=== PATIENT | female | born 1995 | race Caucasian/White ===

== ENCOUNTER 2019-06-24 04:58 | Inpatient (IN) ==
[2019-06-24] MEDS ORDERED: STADOL IV PRN (05:00)
[2019-06-24] MEDS ORDERED: PEPCID IV PRN (05:00)
[2019-06-24] MEDS ORDERED: REGLAN PO ONE (05:00)
[2019-06-24] MEDS ORDERED: KEFZOL 1 GM/D5W 1 GM/50 ML IVPB IV PRN (05:00)
[2019-06-24] MEDS ORDERED: PITOCIN 30 UNITS/NS 30 UNIT/500 ML IV.SOLN IV SCH ×2 (05:00→17:30)
[2019-06-24] MEDS ORDERED: PEPCID PO ONE (05:00)
[2019-06-24] MEDS ORDERED: ZOFRAN IV PRN (05:00)
[2019-06-24] MEDS ORDERED: SODIUM CHLORIDE 0.9% INJ SCH (05:00)
[2019-06-24] MEDS ORDERED: PEPCID PO PRN (05:00)
[2019-06-24] MEDS ORDERED: AMPICILLIN 2 GM/NS 2 GM/100 ML IVPB IV ONE (05:00)
[2019-06-24] MEDS: LR 1,000 ML IV SCH ×3 (05:30→16:49)
[2019-06-24 06:22] LABS: BASO# 0.02 X1000 (0.0-0.2); BASO% 0.2 % (0.0-0.8); EOS# 0.16 X1000 (0.0-0.7); EOS% 1.4 % (0.0-10.0); HEMATOCRIT 33.6 % (37.0-47.0); HEMOGLOBIN 11.1 g/dL (12.0-16.0); IMM GRAN# 0.05 X1000 (0.0-0.04); IMM GRAN% 0.4 % (0.0-0.5); LYMPH# 2.31 X1000 (1.2-3.4); LYMPH% 20.2 % (20.5-51.1); MCH 27.5 PG (27-31); MCV 83.4 FL (81-99); MONO# 0.77 X1000 (0.11-0.59); MONO% 6.7 % (1.7-9.3); MPV 10.8 FL (7.4-10.4); NEUT# 8.15 X1000 (1.4-6.5); NEUT% 71.1 % (42.2-75.2); PLT 218 X1000 (130-400); RBC 4.03 XMIL (4.2-5.4); RDW 13.3 % (11.5-14.5); WBC 11.46 X1000 (4.8-10.8)
[2019-06-24 06:26] LABS: URINE SOURCE VOIDED
[2019-06-24 06:28] LABS: BILIRUBIN URINE NEGATIVE (NEGATIVE); BLOOD URINE 2+ (NEGATIVE); CLARITY CLEAR (CLEAR); COLOR YELLOW; GLUCOSE URINE NEGATIVE (NEGATIVE); KETONE URINE TRACE mg/dL (NEGATIVE); LEUKOCYTES URINE 2+ (NEGATIVE); NITRITE URINE NEGATIVE (NEGATIVE); PH URINE 6.5; PROTEIN URINE TRACE mg/dL (NEGATIVE); SP GRAVITY URINE 1.015; UROBILINOGEN URINE NORMAL
[2019-06-24 06:35] LABS: UR AMPHETAMINES QUAL NONE DETECTED (NONE DETECT); UR BARBITUATES QUAL PRESUMPTIVE POSITIVE (NONE DETECT); UR BENZODIAZEPIN QUAL NONE DETECTED (NONE DETECT); UR CANNABINOIDS QUAL NONE DETECTED (NONE DETECT); UR COCAINE QUAL NONE DETECTED (NONE DETECT); UR METHADONE QUAL NONE DETECTED (NONE DETECT); UR METHAMPHETAMINE QUAL NONE DETECTED (NONE DETECT); UR OPIATES QUAL NONE DETECTED (NONE DETECT); UR OXYCODONE QUAL NONE DETECTED (NONE DETECT); UR PCP QUAL NONE DETECTED (NONE DETECT); UR PROPOXYPHENE QUAL NONE DETECTED (NONE DETECT); UR TCA QUAL NONE DETECTED (NONE DETECT)
[2019-06-24 06:40] LABS: AGAP 9; ALBUMIN 3.2 g/dL (3.5-5.0); ALKALINE PHOSPHATASE 118 U/L (32-104); BUN 6 mg/dL (8-22); CALCIUM 8.2 mg/dL (8.8-10.2); CHLORIDE 111 mmol/L (98-107); COSMO 272; CREATININE 0.4 mg/dL (0.5-0.9); ESTIMATED GFR > 60; GLUCOSE 77 mg/dL (70-104); GOT 19 U/L (10-30); GPT 8 U/L (10-36); POTASSIUM 4.6 mmol/L (3.5-5.1); SODIUM 138 mmol/L (136-145); TCO2 18 mmol/L (25-35); TOTAL PROTEIN 5.4 g/dL (6.3-8.3)
[2019-06-24] MEDS ORDERED: FIORICET PO PRN ×2 (08:37→19:08)
[2019-06-24] MEDS ORDERED: NAROPIN 0.2% INJ ONE (08:45)
[2019-06-24] MEDS ORDERED: FENTANYL-BUPIV-NS 2 MCG-0.1% 200 ML EPIDURAL SCH (09:00)
[2019-06-24] MEDS: AMPICILLIN 1 GM/NS 1 GM/50 ML IVPB IV SCH ×2 (09:03→13:32)
--- NOTE | 2019-06-24 11:24 | HISTORY AND PHYSICAL ---
HISTORY OF PRESENT ILLNESS: The patient is a 23-year-old G4, P0, 0-3-0 at 39 weeks and 6 days who presents to Labor and Delivery for induction of labor secondary to gestational hypertension. The patient is seen and evaluated in office yesterday, and noted to have elevated pressures ranging between 140s and 170s systolically and 80s to 90s diastolically. Denied any headaches at the time of epigastric pain, scotomata, or shortness of breath. The patient does have a history significant for headaches throughout current that is resolved with Fioricet. The patient reports good movement. Denies contractions, leakage of fluid or vaginal bleeding. PAST MEDICAL HISTORY: Anxiety, chronic headaches, and insomnia. MEDICATIONS: vitamins and Fioricet. PAST SURGICAL HISTORY: None. ALLERGIES: Sulfa. SOCIAL HISTORY: Prior history of tobacco use. Currently admits to cessation. Denies alcohol or drug use. OBSTETRICAL HISTORY: Three prior SAB's. LINE PULLER HISTORY: Denies history of STI exposure. Menarche at age 11. Last menstrual period 09/06/2018. FAMILY HISTORY: Noncontributory. PHYSICAL EXAMINATION: VITAL SIGNS: Temperature 97.8 degrees, pulse 90, blood pressure 140/91, 160/92 and 170/80. Weight 235 pounds, height 5 feet 2 inches. GENERAL: No acute distress. Alert, awake, and oriented x3. CARDIOVASCULAR: Regular rate and rhythm. Positive S1, S2. RESPIRATORY: Clear to auscultation bilaterally. Negative rales, rhonchi, or wheezing. ABDOMEN: Gravid. Nontender to palpation. EXTREMITIES: +1 edema, nontender to palpation. PELVIC: Vaginal exam 3 cm dilated, 80% effaced, -1 station. Membranes intact. Electronic monitoring category 1 tracing. [place] negative contractions. LABORATORY: GBS positive. White count 11.46, hemoglobin 11.1, hematocrit 33.6, and platelets 218,000. Urinalysis trace protein. Uric acid 3.3, ALT 19, and AST 8. ASSESSMENT: Mrs. Shields is a 23-year-old G4, P0, 0-3-0 at 39 weeks and 6 days admitted for induction of labor secondary to gestational hypertension. PLAN: 1. Admit to Labor and Delivery for Pitocin induction. 2. Start ampicillin antibiotic for GBS prophylaxis. 3. Obtain routine labor labs. 4. Continuous monitoring. 5. Monitor blood pressures and signs and symptoms of preeclampsia closely. 6. Estimated weight 8 pounds 5 ounces. 7. Anticipate vaginal delivery.
[2019-06-24 14:24] LABS: LDH 150 U/L (135-214)
[2019-06-24] MEDS ORDERED: XYLOCAINE-MPF 1% INJ PRN ×2 (15:00→17:25)
[2019-06-24] MEDS ORDERED: MINERAL OIL ONE (15:00)
[2019-06-24] MEDS ORDERED: DILAUDID IV ONE (16:33)
[2019-06-24] MEDS ORDERED: PITOCIN 20 UNITS/NS 20 UNITS/1,000 ML IV.SOLN ONE (17:05)
[2019-06-24] MEDS ORDERED: XYLOCAINE-MPF 1% INJ ONE (17:15)
[2019-06-24] MEDS ORDERED: BOOSTRIX VACCINE IM ONE (17:25)
[2019-06-24] MEDS ORDERED: HYDROXYZINE IM PRN (17:25)
[2019-06-24] MEDS ORDERED: ATARAX PO PRN (17:25)
[2019-06-24] MEDS ORDERED: PERI MEDS (DERMOPLAST/NUPERCAINAL/TUCKS) MISC PRN (17:25)
[2019-06-24] MEDS ORDERED: BENADRYL IV PRN (17:25)
[2019-06-24] MEDS ORDERED: AMBIEN PO PRN (17:25)
[2019-06-24] MEDS ORDERED: PITOCIN IM PRN (17:25)
[2019-06-24] MEDS ORDERED: M-M-R II VACCINE SUBQ ONE (17:25)
[2019-06-24] MEDS ORDERED: BENADRYL PO PRN (17:25)
[2019-06-24] MEDS ORDERED: CYTOTEC PO PRN (17:25)
[2019-06-24] MEDS ORDERED: MINERAL OIL PO PRN (17:25)
[2019-06-24] MEDS ORDERED: PITOCIN 20 UNITS/NS 20 UNITS/1,000 ML IV.SOLN INJ SCH (17:30)
--- NOTE | 2019-06-24 19:38 | OPERATIVE NOTE ---
PROCEDURE DATE: 06/24/2019 PROCEDURE: Vaginal delivery. DESCRIPTION OF PROCEDURE: The patient delivered a viable female infant at 4:11 p.m., weighing 8 pounds 2 ounces with scores of 8 and 9 at one and five minutes. Infant delivered over intact perineum. No nuchal cord was identified. At completion of delivery, body cord was noted and reduced. Infant was placed on maternal abdomen and assessed by waiting job placement specialist staff. Cord was clamped and cut. Cord blood was obtained. Placenta was delivered intact with a three-vessel cord. The patient was given IV Pitocin and uterine fundal massage was completed to obtain hemostasis and prevent uterine atony. Perineum was identified. A second-degree perineal tear was noted and laceration was repaired with 2-[address] needle. Cervical tear was also identified and repaired with 2-[address] needle. Good hemostasis again was obtained. The patient tolerated the procedure well.
[2019-06-24] MEDS: MOTRIN PO PRN (20:18)
[2019-06-24] MEDS: PERICOLACE PO SCH (20:18)
[2019-06-24] MEDS ORDERED: PERCOCET-5 PO ONE (22:18)
[2019-06-25 06:58] LABS: BASO# 0.02 X1000 (0.0-0.2); BASO% 0.2 % (0.0-0.8); EOS# 0.16 X1000 (0.0-0.7); EOS% 1.2 % (0.0-10.0); HEMATOCRIT 29.9 % (37.0-47.0); HEMOGLOBIN 9.8 g/dL (12.0-16.0); IMM GRAN# 0.08 X1000 (0.0-0.04); IMM GRAN% 0.6 % (0.0-0.5); LYMPH# 2.79 X1000 (1.2-3.4); LYMPH% 21.5 % (20.5-51.1); MCH 27.8 PG (27-31); MCHC 32.8 g/dL (33-37); MCV 84.7 FL (81-99); MONO% 12.3 % (1.7-9.3); MPV 10.5 FL (7.4-10.4); NEUT# 8.31 X1000 (1.4-6.5); NEUT% 64.2 % (42.2-75.2); PLT 183 X1000 (130-400); RBC 3.53 XMIL (4.2-5.4); RDW 13.5 % (11.5-14.5); WBC 12.96 X1000 (4.8-10.8)
[2019-06-25] MEDS: MOTRIN PO PRN ×2 (08:34→16:34)
--- NOTE | 2019-06-25 09:59 | OB/GYN PROGRESS NOTE ---
Progress Note OB - . Patient Problems: Current Active Problems Problem Status Onset Gestational hypertension w/o significant proteinuria in 3rd trimester Acute OB Progress Note: Vital Signs - 24 hr 06/24/19 11:00 06/24/19 17:20 06/24/19 17:30 Temperature 98.6 F 97.6 F Pulse Rate 85 122 H 111 H Respiratory Rate 20 20 20 Blood Pressure 133/69 Blood Pressure [Right Arm] 144/78 148/85 O2 Sat by Pulse Oximetry 100 97 99 06/24/19 17:40 06/24/19 17:50 06/24/19 18:00 Temperature Pulse Rate 94 H 117 H 119 H Respiratory Rate 20 20 20 Blood Pressure Blood Pressure [Right Arm] 120/79 156/91 140/89 O2 Sat by Pulse Oximetry 99 99 99 06/24/19 18:10 06/24/19 18:20 06/24/19 20:00 Temperature 97.2 F L Pulse Rate 110 H 113 H 122 H Respiratory Rate 20 20 18 Blood Pressure 137/85 Blood Pressure [Right Arm] 159/67 154/60 O2 Sat by Pulse Oximetry 99 99 06/24/19 23:50 06/25/19 04:00 06/25/19 08:30 Temperature 97.1 F L 97.2 F L 96.7 F L Pulse Rate 111 H 81 89 Respiratory Rate 18 18 16 Blood Pressure 142/82 133/82 134/85 Blood Pressure [Right Arm] O2 Sat by Pulse Oximetry 99 Laboratory Results - last 24 hr 06/24/19 06/25/19 05:30 06:27 WBC 12.96 H RBC 3.53 L Hgb 9.8 L Hct 29.9 L MCV 84.7 MCH 27.8 MCHC 32.8 L RDW Std Deviation 13.5 Plt Count 183 MPV 10.5 H Immature Gran % (Auto) 0.6 H Neut % (Auto) 64.2 Lymph % (Auto) 21.5 [place] % (Auto) 12.3 H Eos % (Auto) 1.2 Baso % (Auto) 0.2 Immature Gran # (Auto) 0.08 H Neut # (Auto) 8.31 H Lymph # (Auto) 2.79 [place] # (Auto) 1.60 H Eos # (Auto) 0.16 Baso # (Auto) 0.02 Lactate Dehydrogenase 150 Post 1 VSSAF abd s/nt, fund -1 no cx Pain well managed ambulating devyn reg diet Vital Signs - 24 hr 06/24/19 11:00 06/24/19 17:20 06/24/19 17:30 Temperature 98.6 F 97.6 F Pulse Rate 85 122 H 111 H Respiratory Rate 20 20 20 Blood Pressure 133/69 Blood Pressure [Right Arm] 144/78 148/85 O2 Sat by Pulse Oximetry 100 97 99 06/24/19 17:40 06/24/19 17:50 06/24/19 18:00 Temperature Pulse Rate 94 H 117 H 119 H Respiratory Rate 20 20 20 Blood Pressure Blood Pressure [Right Arm] 120/79 156/91 140/89 O2 Sat by Pulse Oximetry 99 99 99 06/24/19 18:10 06/24/19 18:20 06/24/19 20:00 Temperature 97.2 F L Pulse Rate 110 H 113 H 122 H Respiratory Rate 20 20 18 Blood Pressure 137/85 Blood Pressure [Right Arm] 159/67 154/60 O2 Sat by Pulse Oximetry 99 99 06/24/19 23:50 06/25/19 04:00 06/25/19 08:30 Temperature 97.1 F L 97.2 F L 96.7 F L Pulse Rate 111 H 81 89 Respiratory Rate 18 18 16 Blood Pressure 142/82 133/82 134/85 Blood Pressure [Right Arm] O2 Sat by Pulse Oximetry 99
[2019-06-25] MEDS: PERICOLACE PO SCH (20:20)
[2019-06-25] MEDS: TYLENOL PO PRN (20:20)
[2019-06-25] MEDS ORDERED: PERCOCET-5 PO ONE (21:17)
[2019-06-26] MEDS: MOTRIN PO PRN ×2 (03:42→10:55)
--- NOTE | 2019-06-26 07:30 | OB/GYN PROGRESS NOTE ---
Progress Note OB - . Patient Problems: Current Active Problems Problem Status Onset Vaginal delivery Acute Gestational hypertension w/o significant proteinuria in 3rd trimester Acute OB Progress Note: Vital Signs - 24 hr 06/25/19 08:30 06/25/19 11:40 06/25/19 16:30 Temperature 96.7 F L 96.4 F L 97.2 F L Pulse Rate 89 79 93 H Respiratory Rate 16 16 16 Blood Pressure 134/85 119/62 135/88 O2 Sat by Pulse Oximetry 99 97 99 06/25/19 20:30 06/26/19 00:00 Temperature 97.6 F 97.8 F Pulse Rate 90 83 Respiratory Rate 18 18 Blood Pressure 140/71 129/78 O2 Sat by Pulse Oximetry 97 HPI: Pt seen and examined. C/o slight numbness and pins and needles sensation in her right hand. Also reports discomfort at her perineum from repair. Ambulating and urinating w/o difficulty. Tolerating regular diet. Bottle feeding and trying to breast pump. Reports decreased lochia VS: please see above GEN: NAD CV: RRR, +S1S2 RESP: CTA b/l ABD: soft NTTP, FF below umbilicus EXT: neg calf tenderness, normal muscle strength in b/l hands ASSESSMENT: 23 yo PPD#2 s/p with gestational HTN PLAN: -BP well controlled, no meds -Counseled on si/sy of pre-eclampsia -Con't PO pain meds -Explained to pt numbness likely due to fluid 3rd spacing s/p delivery, and likely will resolve. However, should symptoms worsen will refer to Neurology -Encouraged breast pumping -OOB to ambulation -plan for d/c home today -f/u in office 5-6 weeks PP
[2019-06-26 08:01] VITALS: BP 133/89
[2019-06-26] MEDS: TYLENOL PO PRN ×2 (08:06→15:05)
== END 2019-06-26 15:15 | disposition other institution (70) | DRG 807 ==
LOC: P.LD 04:58
PROVIDERS: ADMIT Obstetrics & Gynecology; ATTEND Obstetrics & Gynecology
CPT/HCPCS: 80053; 80104; 80301; 80305; 81003; 83615; 84550; 85025; 86592; A9270; G0431; G0434; G0477; J0290; J1170; J2590; J2795; J3410; J7120